=== PATIENT | female | born 1955 | race Two or more races ===

== ENCOUNTER 2024-07-13 04:38 | Day surgery (SDC) | payer OTHER, MEDICARE ==
[2024-07-12 10:21] VITALS: BMI 27.3
[2024-07-13 08:37] VITALS: TEMP 98.5
[2024-07-13 09:25] VITALS: RESP 19
[2024-07-13 09:28] VITALS: BP 134/64; PULSE 69
== END 2024-07-13 09:35 | disposition home or self-care (01) ==
LOC: JASU-ENDO 04:38
PROVIDERS: ATTEND Internal Medicine Gastroenterology
PROC: 0DBH8ZX Excision of Cecum, Via Natural or Artificial Opening Endoscopic, Diagnostic (ICD-10-PCS; principal; 2024-07-13 08:00)
DX: Z12.11 Encounter for screening for malignant neoplasm of colon (principal); D12.0 Benign neoplasm of cecum; K57.30 Diverticulosis of large intestine without perforation or abscess without bleeding; Z86.0100 Personal history of colon polyps, unspecified
CPT/HCPCS: 88305-TC